=== PATIENT | female | born 2000 | race African-American/Black ===

== ENCOUNTER 2020-08-31 11:47 | Emergency (ER) | payer SELFPAY ==
[2020-08-31] MEDS ORDERED: Lorazepam 2 MG/ML VIAL ONE (11:55)
[2020-08-31 12:28] LABS: Anion Gap 18 mmol/L (10-20); BUN (Urea Nitrogen) Less than 4 mg/dL (7.0-18.7); Calc. Creatinine Clearance 0 mL/min (70-130); Calcium 9.5 mg/dL (7.8-10.44); Carbon Dioxide 22 mmol/L (22-29); Chloride 108 mmol/L (98-107); Glucose 71 mg/dL (70-105); Potassium 3.3 mmol/L (3.5-5.1); Sodium 145 mmol/L (136-145)
[2020-08-31] MEDS ORDERED: Potassium Chloride 20 MEQ TAB ONE (12:49)
== END 2020-08-31 12:56 | disposition home or self-care (01) ==
LOC: MADERS 11:47
DX: F41.0 Panic disorder [episodic paroxysmal anxiety] (principal); E87.6 Hypokalemia
CPT/HCPCS: 36415; 80048; 96372; 99283; J2060